=== PATIENT | male | born 1970 | race American Indian/Alaskan Native ===

== ENCOUNTER 2019-07-07 09:41 | Outpatient (CLI) | payer OTHER ==
[2019-07-07 11:03] LABS: Blood Urea Nitrogen 19 mg/dL (9-20)
--- NOTE | 2019-07-07 12:28 | Cat Scan Report ---
CT ABDOMEN AND PELVIS WITHOUT CONTRAST HISTORY: Hematuria COMPARISON: None. TECHNIQUE: Axial CT images were obtained through the abdomen and pelvis without IV contrast. Sagittal and coronal reformatted images. All CT scans at this location are performed using CT dose reduction for ALARA by means of automated exposure control. FINDINGS: CT ABDOMEN: Lung Bases: Clear. Liver: No significant abnormality. Biliary: No significant abnormality. Spleen: No significant abnormality. Unenlarged. Pancreas: No significant abnormality. Adrenals: No significant abnormality. Kidneys: The kidneys are normal size, contour and position. No cystic disease or mass. There appear t o be a few punctate renal calyceal stones in both kidneys. No large stones or ureteral stones. Lymphatics: No lymphadenopathy. Vasculature: No significant abnormality. Bowel/Peritoneum: No significant abnormality. No free air. No free fluid. CT PELVIS: : No significant abnormality. Osseous Structures: No significant abnormality. Additional Findings: None IMPRESSION: Question tiny punctate bilateral renal stones. Signer Name: Barry Castillo Jr, MD Signed: 07/07/2019 12:23 PM Workstation Name: [id number]
== END 2019-07-07 09:42 | disposition home or self-care (01) ==
LOC: CT 09:41
PROVIDERS: ATTEND Specialist
DX: R31.9 Hematuria, unspecified (principal)
CPT/HCPCS: 36415; 74176; 82565; 84520

== ENCOUNTER 2019-08-23 10:42 | Outpatient (CLI) | payer OTHER ==
--- NOTE | 2019-08-23 12:43 | Fluoroscopy Report ---
ARTHROGRAM OF THE RIGHT SHOULDER HISTORY: M19.011 PRIMARY OSTEOARTHRITIS RIGHT SHOULDER. COMPARISON: None. CONSENT: The risks,benefits, and alternatives of theprocedure were discussed with the patient who agr eed toproceed. TECHNIQUE: The patient was placed supine on the fluoroscopy table. The right glenohumeral joint was identified and overlying skin demarcated under fluoroscopic guidance. Area was prepped and draped in the usual sterile fashion. Time-out was performed. Skin and subcutaneous tissues were anesthetized with lidocaine. A 22-gauge spinal needle was placed into the joint space under fluoroscopic guidance. Dilute gadolini um mixture was then injected. The needle was removed and the patient tolerated the procedure well wi thout immediate complication. FLUOROSCOPIC TIME: 60 seconds # IMAGES: 2 CONTRAST VOLUME: 10 ml dilute gadolinium mixture. IMPRESSION: 1. Technically successful arthrogram. See post arthrogram Signer Name: Preston Yepez MD Signed: 08/23/2019 12:39 PM Workstation Name: [id number]
--- NOTE | 2019-08-23 14:38 | Magnetic Resonance Report ---
MR arthrogram right shoulder HISTORY: M19.011 PRIMARY OSTEOARTHRITIS RIGHT SHOULDER. Chronic generalized right shoulder pain TECHNIQUE: Please refer to the arthrogram report from this same date for contrast details. COMPARISON: None FINDINGS: There is severe glenohumeral and moderate acromioclavicular degenerative arthrosis, with o steochondral bodies in the subcoracoid recess measuring up to 1.3 cm. No acute osseous abnormality id entified. The labrum is macerated circumferentially. There are low-grade partial-thickness articular surface tears involving the anterior fibers of the etienne praspinatus tendon between the critical zone and the footplate and also involving the posterior supra spinatus fibers in the region of the critical zone and best seen on the sagittal series. No other cuf f tear identified. The biceps tendon is intact. IMPRESSION: Severe degenerative change in the shoulder as outlined above with large osteochondral santana dies within the joint space most notably in the subcoracoid recess, circumferentially macerated labru m, and low-grade partial-thickness articular surface tearing of the supraspinatus tendon. Signer Name: Preston Yepez MD Signed: 08/23/2019 2:34 PM Workstation Name: [id number]
== END 2019-08-23 10:43 | disposition home or self-care (01) ==
LOC: MRI 10:42
PROVIDERS: ATTEND Orthopaedic Surgery
DX: M19.011 Primary osteoarthritis, right shoulder (principal)
CPT/HCPCS: 23350; 73040; 73222; A9577